=== PATIENT | female | born 1960 | race Caucasian/White ===

== ENCOUNTER 2021-09-17 01:14 | Emergency (ER) | payer MEDICARE, MEDICAID ==
[~2021-09-17] VITALS: Ht 162.6 cm; Wt 108.2 kg
[2021-09-17 02:02] VITALS: BP 158/75
[2021-09-17] MEDS ORDERED: CLOT15CR73 TP (03:58)
== END 2021-09-17 04:11 | disposition home or self-care (01) ==
LOC: ER 01:15
DX: B35.9 Dermatophytosis, unspecified (principal); Z59.00 Homelessness unspecified; Z79.899 Other long term (current) drug therapy
CPT/HCPCS: 99283